=== PATIENT | male | born 1940 | race African-American/Black ===

== ENCOUNTER 2018-02-08 15:14 | Emergency (ER) | payer MEDICARE ==
[~2018-02-08] VITALS: Ht 175.3 cm; Wt 85.0 kg
[~2018-02-08 15:14] MED LIST: AMLO10TA4; CALCIUM CHLORIDE 1GM/10ML SYR IV ONE; CYCL10TA7; DEXTROSE 50% WATER 50ML SYRINGE IV ONE; EPINEPHRINE 0.1MG/ML (1:10,000) 10ML SYR ONE; IBUPROFEN; SIMV20TA2; SODIUM BICARBONATE 7.5% 0.9 MEQ/ML 50ML SYR IV ONE; TRAMADOL; ZOLP5TAB2; [UNRECOGNIZED DRUG - CODE]
[2018-02-08] MEDS ORDERED: SODIUM CHLORIDE 0.9% 1000ML BAG (SEPSIS BOLUS) IV ONE (16:00)
[2018-02-08] MEDS ORDERED: LEVOFLOXACIN 750MG PREMIX 150 ML IV ONE (16:00)
[2018-02-08 17:07] LABS: HEMATOCRIT. 29.1 % (42.0-52.0); HEMOGLOBIN. 9.4 g/dL (14.0-18.0); MEAN CORPUSCULAR HEMOGLOBIN 27.4 pg (28.0-32.0); MEAN CORPUSCULAR VOLUME 84.7 fL (80.0-94.0); MEAN PLATELET VOLUME 9.7 fl (7.4-10.4); PLATELET 119 x1000/uL (130-400); RED BLOOD CELL COUNT 3.44 mill/uL (4.7-6.1); RED CELL DISTRIBUTION WIDTH 15.7 % (11.6-14.6)
[2018-02-08 17:12] LABS: CHLORIDE 104 mEq/L (98-107); INR 1.5; PROTHROMBIN TIME 16.2 sec (9.4-11.6)
[2018-02-08] MEDS ORDERED: SODIUM CHLORIDE 0.9% 1,000 ML IV ONE (17:27)
[2018-02-08] MEDS ORDERED: VANCOMYCIN 1 G PREMIX 200 ML IV STA (17:27)
[2018-02-08] MEDS ORDERED: ACETAMINOPHEN 650MG SUPP PR ONE (17:30)
[2018-02-08] MEDS ORDERED: NOREPINEPHRINE 4 MG in DEXT 5% WATER 246 ML IV ONE ×2 (17:30→18:45)
[2018-02-08] MEDS ORDERED: DEXTROSE 50% WATER 50ML SYRINGE IV ONE ×2 (17:30→19:33)
[2018-02-08] MEDS ORDERED: PIPERACILLIN/TAZOBACTAM 3.375GM/50ML PREMIX IV ONE (17:30)
[2018-02-08 17:44] LABS: PLATELET ESTIMATE SLIGHTLY DECREASED
[2018-02-08] MEDS ORDERED: PIPERACILLIN/TAZ 3.375G PREMIX 50 ML IV NR (17:45)
[2018-02-08] MEDS: NOREPINEPHRINE 4 MG in DEXT 5% WATER 246 ML IV NR ×2 (17:53→19:11)
[2018-02-08 18:10] LABS: CLARITY URINE TURBID (CLEAR); COLOR URINE ORANGE (YELLOW); KETONES URINE NEGATIVE (NEGATIVE); LEUKOCYTE ESTERASE URINE 2+ (NEGATIVE); NITRITE URINE NEGATIVE (NEGATIVE); OCCULT BLOOD URINE 3+ (NEGATIVE); PH URINE 7.5 (4.5-8.0); PROTEIN URINE 3+ (NEGATIVE); SPECIFIC GRAVITY URINE 1.015 (1.005-1.030); UROBILINOGEN URINE 0.2 E.U./dL (0.2-1.0)
[2018-02-08] MEDS ORDERED: MORPHINE SULFATE 4 MG/ML CPJ (NOT FOR IM USE) IV NR (18:40)
[2018-02-08] MEDS ORDERED: ONDANSETRON HCL 4MG/2ML VIAL IV NR (18:40)
[2018-02-08] MEDS ORDERED: SODIUM CHLORIDE 0.45% 1,000 ML IV SCH (18:44)
[2018-02-08] MEDS ORDERED: HYDROCODONE/ACETAMINOPHEN 5/325MG TABLET PO PRN (18:45)
[2018-02-08] MEDS ORDERED: ACETAMINOPHEN 650MG SUPP PR PRN (18:45)
[2018-02-08] MEDS ORDERED: MAGNESIUM/ALUMINUM HYDROXIDE/SIMETHICONE 30ML UDC PO PRN (18:45)
[2018-02-08] MEDS ORDERED: NA PHOS,M-B/NA PHOS,DI-BA ENEMA 118ML PR PRN (18:45)
[2018-02-08] MEDS ORDERED: IPRATROPIUM/ALBUTEROL 0.5-3(2.5)MG/3ML NEB INH PRN (18:45)
[2018-02-08] MEDS ORDERED: GUAIFENESIN 200MG/10ML SUGAR FREE UDC PO PRN (18:45)
[2018-02-08] MEDS ORDERED: DOCUSATE SODIUM 100MG CAPSULE PO PRN (18:45)
[2018-02-08] MEDS ORDERED: ACETAMINOPHEN 325MG TABLET PO PRN (18:45)
[2018-02-08] MEDS ORDERED: ACETAMINOPHEN 650MG/20.3ML UDC GT PRN (18:45)
[2018-02-08] MEDS ORDERED: DIPHENHYDRAMINE 50MG/ML VIAL IV PRN (18:45)
[2018-02-08] MEDS ORDERED: ONDANSETRON HCL 4MG/2ML VIAL IV PRN (18:45)
[2018-02-08] MEDS ORDERED: ALBUMIN HUMAN 25GM/100ML (25%) IV ONE (18:45)
[2018-02-08] MEDS ORDERED: CLONIDINE 0.1MG TABLET PO PRN (18:45)
[2018-02-08] MEDS ORDERED: PIPERACILLIN/TAZ 3.375G PREMIX 50 ML IV SCH (18:45)
[2018-02-08] MEDS ORDERED: ENOXAPARIN 40MG/0.4ML SYR SUBCUT SCH (18:45)
[2018-02-08] MEDS ORDERED: VANCOMYCIN 1 G PREMIX 200 ML IV SCH (18:45)
[2018-02-08 19:15] VITALS: BP 105/71
[2018-02-08 19:40] LABS: AMMONIA 220 uMol/L (<32)
[2018-02-08] MEDS ORDERED: PANTOPRAZOLE SODIUM 40 MG/VIAL IV ONE (19:45)
[2018-02-08] MEDS ORDERED: EPINEPHRINE 0.1MG/ML (1:10,000) 10ML SYR ONE (19:46)
[2018-02-08 20:36] LABS: *AMPHETAMINES SCREEN URINE NEGATIVE (NEGATIVE); *BARBITURATES SCREEN URINE NEGATIVE (NEGATIVE); *BENZODIAZEPINES SCREEN URINE NEGATIVE (NEGATIVE); *COCAINE SCREEN URINE NEGATIVE (NEGATIVE); CANNABINOID URINE SCREEN NEGATIVE (NEGATIVE)
[2018-02-08 20:37] LABS: METHADONE URINE SCREEN NEGATIVE (NEGATIVE); OPIATES URINE SCREEN PRESUMTIVE POSITIVE (NEGATIVE); PHENCYCLIDINE URINE SCREEN NEGATIVE (NEGATIVE)
[2018-02-08] MEDS ORDERED: SODIUM CHLORIDE 0.9% INJ 3ML FLUSH IVF SCH (22:00)
== END 2018-02-08 22:15 | disposition expired ==
LOC: ER 15:14 → EDBEDREQSVC 18:47 → EDBEDREQ 18:47 → CANBEDREQ 20:23 → ER 22:15
DX: A41.9 Sepsis, unspecified organism (principal); J18.9 Pneumonia, unspecified organism; N39.0 Urinary tract infection, site not specified; K92.2 Gastrointestinal hemorrhage, unspecified; R00.0 Tachycardia, unspecified; Z79.899 Other long term (current) drug therapy
CPT/HCPCS: 31500; 36415; 51702; 70450; 71045; 71250; 74176; 80053; 80305; 81003; 82140; 83605; 84145; 85025; 85610; 87040; 87077; 87086; 87186; 93005; 94002; 96365; 96366; 96368; 96375; 99291; J1956; J2543; J3370; J3490; J7030; 96361; J7060